=== PATIENT | female | born 2000 | race Caucasian/White ===

== ENCOUNTER 2019-02-15 14:31 | Emergency (ER) | payer OTHER, SELFPAY ==
[2019-02-15 14:40] VITALS: BP 123/89; PULSE 119; RESP 16; O2SAT 100; BMI 34.5
[2019-02-15 15:04] LABS: Influenza A and B by PCR Rapid Negative (Negative)
--- NOTE | 2019-02-15 16:31 | ED.URI ---
HPI - URI/Sore Throat <FARHAN Shah - Last Filed: 02/15/19 22:04> General Chief Complaint: Upper Respiratory Symptoms Stated Complaint: THINKS SHE HAS FLU Time Seen by Provider: 02/15/19 16:15 Source: patient Mode of arrival: ambulatory Limitations: no limitations History of Present Illness HPI Narrative: a 18-year-old female with history of type 1 diabetes and is a nonsmoker here for complaint of sore throat over the past 3 days with low-grade fever area. She also reports having nasal congestion. No cough. She reports having some swelling and redness to the back of her throat. She does report also having generalized body aches during the same timeframe. She states she is tolerating p.o. intake. No nausea or vomiting. No shortness of breath. No other concerns or complaints at this timeframe. MD Complaint: fever, sore throat and rhinorrhea Related Data Previous Rx's Medication Instructions Recorded amoxicillin 500 mg PO BID #20 tab 02/15/19 Allergies Allergy/AdvReac Type Severity Reaction Status Date / Time No Known Drug Allergies Allergy Verified 02/15/19 14:40 Review of Systems <FARHAN Shah - Last Filed: 02/15/19 22:04> Constitutional Reports chills, Reports fever(s), Denies lethargy and Denies weakness Eyes Denies change in vision, Denies eye discharge, Denies irritation and Denies loss of vision ENT Ears, Nose, Mouth, and Throat: Reports sore throat and Denies throat swelling Cardiovascular Denies chest pain, Denies irregular heart rhythm, Denies lightheadedness, Denies palpitations and Denies orthopnea Respiratory Denies wheezing Gastrointestinal Gastrointestinal: Denies abdominal pain, Denies change in bowel habits, Denies diarrhea, Denies nausea and Denies vomiting Genitourinary Denies hematuria, Denies flank pain, Denies urinary incontinence and Denies urinary urgency Integumentary/Breasts Denies pruritus, Denies erythema, Denies rash and Denies wounds Neurologic Denies confusion, Denies loss of vision and Denies weakness Psychiatric Denies anxiety, Denies confusion, Denies depression, Denies homicidal ideation and Denies suicidal ideation Endocrine Denies palpitations Allergic/Immunologic Denies urticaria, Denies throat swelling and Denies wheezing Exam <FARHAN Shah - Last Filed: 02/15/19 22:04> Initial Vital Signs Initial Vital Signs: Vital Signs Pulse Rate 119 H 02/15/19 14:40 Respiratory Rate 16 02/15/19 14:40 Blood Pressure 123/89 02/15/19 14:40 Pulse Oximetry 100 02/15/19 14:40 Const General: cooperative and well developed Nutritional Appearance: well nourished Orientation: alert, awake, oriented x3 and not confused HENMT Mouth: oral mucosae normal and moist mucous membranes Throat: posterior oropharynx abnormal edema, erythema and exudates Eyes Conjunctivae: conjunctivae normal Sclera: sclerae normal Pupils: PERRL EOM: EOM intact bilaterally Resp Effort & Inspection: normal respiratory effort, able to speak in complete sentences, no respiratory distress and no use of accessory muscles Auscultation: clear to auscultation bilaterally, no rales, no rhonchi and no wheezes Cardio Rate: regular rate Rhythm: regular rhythm Heart Sounds: no click, no gallops, no murmurs and no rubs Pulses: normal peripheral pulses Skin General: no rashes or lesions noted, No jaundice and No petechiae <Emanuel Hill DO - Last Filed: 02/16/19 07:06> Initial Vital Signs Initial Vital Signs: Vital Signs Pulse Rate 119 H 02/15/19 14:40 Respiratory Rate 16 02/15/19 14:40 Blood Pressure 123/89 02/15/19 14:40 Pulse Oximetry 100 02/15/19 14:40 Course <FARHAN Shah - Last Filed: 02/15/19 22:04> Orders Ordered: ED Orders 02/15/19 14:40 Influenza A and B by PCR Rapid Stat Vital Signs - 8 hr 02/15/19 14:40 02/15/19 17:38 Pulse Rate 119 H 84 Respiratory Rate 16 18 Blood Pressure 123/89 Pulse Oximetry 100 100 <Emanuel Hill DO - Last Filed: 02/16/19 07:06> Orders Ordered: ED Orders 02/15/19 14:40 Influenza A and B by PCR Rapid Stat Vital Signs - 8 hr 02/15/19 14:40 02/15/19 17:38 Pulse Rate 119 H 84 Respiratory Rate 16 18 Blood Pressure 123/89 Pulse Oximetry 100 100 MDM - URI/Sore Throat <FARHAN Shah Last Filed: 02/15/19 22:04> Lab Data Lab Results 02/15/19 Range/Units 14:40 Influenza A & B (PCR) Negative (Negative) Point of Care Testing Rapid Strep A Negative MDM Narrative Medical decision making narrative: Influenza swab was obtained was negative. Strep test was obtained and was positive. Heart rate was initially elevated when she 1st arrived in the emergency room. She was encouraged to have a snack and also drink fluids. Heart rate normalized. She is treated with amoxicillin. Ueep-[id number]-ozagbow Tylenol or Motrin as needed for any discomfort. Plenty of fluids and rest. Follow up with primary care provider. Return emergency room for any worsening symptoms. <Emanuel Hill DO - Last Filed: 02/16/19 07:06> Lab Data Lab Results 02/15/19 Range/Units 14:40 Influenza A & B (PCR) Negative (Negative) Point of Care Testing Rapid Strep A Negative Discharge Plan Departure Patient Disposition: Home Clinical Impression: Acute streptococcal pharyngitis Discharge Date/Time: 02/15/19 18:09 Interventions: ED Discharge Assessment Last Done: 02/15/19 18:09 Instructions: DI for Strep Throat Activity Restrictions/Additional Instructions: influenza swab was obtained was negative. Strep test was obtained and was positive. Signs and symptoms presents as strep throat. You are placed on antibiotic called amoxicillin use as directed. use [id number] Tylenol or Motrin as needed for any discomfort and fever. Plenty of fluids. Follow up with her primary care for the next few days for re-evaluation. For any worsening symptoms return emergency room. Prescriptions: New amoxicillin 500 mg tablet 500 mg PO BID Qty: 20 RF: 0 Stand Alone Forms: Work Release Note, Work/School Release <Emanuel Hill DO - Last Filed: 02/16/19 07:06> Cosign ED Attending Joseature Attestation: I was immediately available in the department for consultation. Documentation has been reviewed. I agree with assessment and plan.
--- NOTE | 2019-02-15 16:47 | PC.NURSE ---
pt diabetic, checked her own sugar at 53, gave pt some apple juice and water per her request and also grabbed her some yogurt. Her strep is positive and Dariel REAL is aware of this.
[2019-02-15 17:38] VITALS: PULSE 84; RESP 18; O2SAT 100
== END 2019-02-15 18:09 | disposition home or self-care (01) ==
PROVIDERS: Emergency Medicine; Emergency Provider Nurse Practitioner Family
DX: J02.0 Streptococcal pharyngitis (principal)
CPT/HCPCS: 87400; 87880; 99282; 99283

== ENCOUNTER 2019-06-11 19:56 | Emergency (ER) | payer OTHER, SELFPAY ==
[2019-06-11 20:03] VITALS: BP 135/98; PULSE 121; RESP 19; TEMP 36.9; O2SAT 100; BMI 34.5
--- NOTE | 2019-06-11 23:11 | ED.UPPEXIN ---
HPI - Extremity Injury (Upper) General Chief Complaint: Extremity Injury, Upper Stated Complaint: dog bite right hand Time Seen by Provider: 06/11/19 21:07 Source: patient and family Mode of arrival: ambulatory Limitations: no limitations History of Present Illness HPI narrative: 18-year-old nonsmoker, otherwise healthy presents with a chief complaint of a dog bite to her right thumb. She was bitten by her friend's dog whom she knows well and is fully immunized. She was grieving her at the door and reached out to pat her and the dog nipped her on the right thumb. She has full range of motion and denies numbness, tingling or weakness. Her tetanus is current MD complaint: injury to: right Onset (ago): minute(s) Other injuries: none Handedness: right Place: home Severity: mild Relieving factors: none Exacerbating factors: movement of extremity Associated symptoms: denies other symptoms Treatments prior to arrival: bandage Related Data Previous Rx's Medication Instructions Recorded amoxicillin 500 mg PO BID #20 tab 02/15/19 amoxicillin-pot clavulanate 1 tab PO BID #20 tab 06/11/19 [Augmentin] Allergies Allergy/AdvReac Type Severity Reaction Status Date / Time No Known Drug Allergies Allergy Verified 02/15/19 14:40 Review of Systems Constitutional Denies chills, Denies fever(s), Denies lethargy and Denies weakness Eyes Denies change in vision, Denies eye discharge, Denies irritation and Denies loss of vision ENT Ears, Nose, Mouth, and Throat: Denies change in voice, Denies neck pain and Denies sore throat Cardiovascular Denies chest pain, Denies irregular heart rhythm, Denies lightheadedness, Denies palpitations, Denies dyspnea, Denies dyspnea on exertion and Denies orthopnea Respiratory Denies cough, Denies dyspnea, Denies dyspnea on exertion and Denies wheezing Gastrointestinal Gastrointestinal: Denies abdominal pain, Denies change in bowel habits, Denies diarrhea, Denies nausea and Denies vomiting Genitourinary Denies hematuria, Denies flank pain, Denies urinary incontinence and Denies urinary urgency Musculoskeletal Denies neck pain Integumentary/Breasts Denies pruritus, Denies erythema, Denies rash and Reports wounds Neurologic Denies confusion, Denies loss of vision and Denies weakness Psychiatric Denies anxiety, Denies confusion, Denies depression, Denies homicidal ideation and Denies suicidal ideation Endocrine Denies palpitations Hematologic/Lymphatic Denies easy bruising Allergic/Immunologic Denies wheezing PFSH Social History Smoking Status: Never smoker Social History Smoking Status: Never smoker Exam Narrative Exam Narrative: GEN: AOx3 and in mild distress EYES: Pupils are equal, round, and reactive to light and accommodation. Extraoccular muscles are intact bilaterally. There is no subconjunctival hemorrhage or exudate. CHEST: Lungs are clear to auscultation bilaterally and free of wheezes, rales, or rhonchi. Heart rate is regular rhythm, there are no murmurs, clicks, rubs, or gallops. There is no chest wall tenderness. ABD: Abdomen is soft and nontender. There is no guarding or rebound. Bowel sounds are normal in all 4 quadrants. There is no mass or organomegaly. EXT: 1.5 cm gaping laceration to volar surface of thumb. No tendon involvement. Full painless ROM of all extremities with no loss of sensation or strength. SKIN: Warm, pink, and dry. No erythema or rash Initial Vital Signs Initial Vital Signs: Vital Signs Temperature 98.5 F 06/11/19 20:03 Pulse Rate 121 H 06/11/19 20:03 Respiratory Rate 19 06/11/19 20:03 Blood Pressure 135/98 H 06/11/19 20:03 Pulse Oximetry 100 06/11/19 20:03 Procedures Laceration Repair Laceration 1: Site: upper extremity Side (If applicable): right Size (cm): 1.5 Description: flap Depth: simple, single layer Local Anesthetic: lidocaine 1% and bupivacaine 0.5% Amount of anesthesia used (mL): 2 Pre-repair: wound explored Skin layer closed with: nylon Size (cm): 4-0 Number of sutures: 4 Technique: simple, interrupted Course Orders Ordered: Discontinued Medications Amoxicillin/Clavulanate Potassium (Augmentin 875-125 Mg) 1 tab PO NOW ONE Stop: 06/11/19 23:17 Last Admin: 06/11/19 23:24 Dose: 1 tab Vital Signs - 8 hr 06/11/19 23:47 Pulse Rate 100 H Blood Pressure 141/75 H Pulse Oximetry 98 Discharge Plan Departure Patient Disposition: Home Clinical Impression: Dog bite of finger Qualifiers: Encounter type: initial encounter Qualified Code(s): S61.259A - Open bite of unspecified finger without damage to nail, initial encounter Discharge Date/Time: 06/11/19 23:47 Interventions: ED Discharge Assessment Last Done: 06/11/19 23:47 Instructions: DI for Dog Bite Activity Restrictions/Additional Instructions: Please keep the wound clean and dry to the best of your ability. Please monitor for signs of infection such as redness to the skin or increasing pain. Have the sutures removed by your doctor in about 7 days. If you are unable to get into your doctor, we would be happy to remove the sutures in that same timeframe *You have been diagnosed with [ dog bite with laceration ] *What to do: *Take medications as directed *Return to ER if you should have any new, worsening or concerning symptoms y Prescriptions: New amoxicillin-pot clavulanate [Augmentin] 875-125 mg tablet 1 tab PO BID Qty: 20 RF: 0 No Action amoxicillin 500 mg tablet 500 mg PO BID Qty: 20 RF: 0 Referrals: Miscellaneous,Doctor, MD [Primary Care Provider] -
[2019-06-11] MEDS: AMOXICILLIN/CLAV 875/125 MG 1 TAB PO (23:24)
[2019-06-11 23:47] VITALS: BP 141/75; PULSE 100; O2SAT 98
== END 2019-06-11 23:47 | disposition home or self-care (01) ==
PROVIDERS: Emergency Provider Emergency Medicine
DX: S61.051A Open bite of right thumb without damage to nail, initial encounter (principal); W54.0XXA Bitten by dog, initial encounter
CPT/HCPCS: 12001; 99283

== ENCOUNTER → 2019-09-07 15:21 | Outpatient (CLI) | payer OTHER, SELFPAY | DX: Z23 Encounter for immunization (principal) | CPT/HCPCS: 90471; 90686 ==

== ENCOUNTER → 2020-06-14 16:47 | Outpatient (CLI) | payer OTHER, SELFPAY ==
[2020-06-14 18:32] LABS: Urine N gonorrhoeae NOT DETECTED
[2020-06-14 18:33] LABS: Urine Chlamydia NOT DETECTED
== END ==
PROVIDERS: Visit Provider Physician Assistant
DX: R30.0 Dysuria (principal)
CPT/HCPCS: 87077; 87086; 87186; 87491; 87591

== ENCOUNTER → 2020-06-15 14:39 | Outpatient (CLI) | payer OTHER, SELFPAY ==
[2020-06-17 06:52] LABS: COVID19 Sendout Not Detected (Not Detect)
== END ==
PROVIDERS: Visit Provider Physician Assistant
DX: R50.9 Fever, unspecified (principal); R52 Pain, unspecified; R53.83 Other fatigue
CPT/HCPCS: 87635

== ENCOUNTER → 2020-07-01 15:49 | Outpatient (CLI) | payer OTHER, SELFPAY | PROVIDERS: Visit Provider Physician Assistant | DX: R30.0 Dysuria (principal) | CPT/HCPCS: 87086 ==

== ENCOUNTER → 2020-10-24 14:57 | Outpatient (CLI) | payer OTHER, SELFPAY | PROVIDERS: Referring Provider Internal Medicine; Visit Provider Internal Medicine | DX: Z23 Encounter for immunization (principal) | CPT/HCPCS: 90471; 90686 ==

== ENCOUNTER 2021-06-19 12:41 | Emergency (ER) | payer OTHER, SELFPAY ==
[2021-06-19 13:11] VITALS: BP 130/81; PULSE 77; RESP 22; TEMP 36.6; O2SAT 99
--- NOTE | 2021-06-19 13:44 | ED.BACK ---
HPI - Back Pain/Injury General Chief Complaint: Back Pain/Injury Stated Complaint: upper back pain Time Seen by Provider: 06/19/21 13:42 Source: patient History of Present Illness HPI Narrative: Patient is a 20-year-old female with history of type 1 diabetes who presents with right-sided thoracic back pain. 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 Now whenever she flexes her neck is tense pain directly to this 1 particular spot. She has no numbness tingling or weakness in her legs or arms. Related Data Home Medications Medication Instructions Recorded Confirmed insulin aspart prot-aspart 100 1 sliding scale dose SUBCUT 07/01/20 07/01/20 unit/mL (70-30) subcutaneous USEASDIRECTD cartridge Previous Rx's Medication Instructions Recorded cyclobenzaprine 5 mg tablet 5 mg PO TID PRN #10 tab 06/19/21 Allergies Allergy/AdvReac Type Severity Reaction Status Date / Time No Known Drug Allergies Allergy Verified 07/01/20 15:34 Review of Systems Review of Systems Narrative: GENERAL: Denies chills,fever HEENT: Denies throat pain RESPIRATORY: Denies dyspnea, cough, wheezing CARDIOVASCULAR: Denies chest pain, palpitations GASTROINTESTINAL: Denies nausea, vomiting MUSCULOSKELETAL: See HPI SKIN: No rash, no laceration, no pruritus NEUROLOGIC: Denies weakness, dizziness, headache, numbness 8 point review of systems is negative except for those stated above and HPI Patient History Medical History (Updated 06/19/21 @ 14:03 by Alise Vernon DO) Routine screening for STI (sexually transmitted infection) UTI (urinary tract infection) Social History Smoking Status: Never smoker Smoking Status: Never smoker alcohol intake frequency: other Substance Use Type: does not use Exam Initial Vital Signs Initial Vital Signs: Vital Signs Temperature 97.9 F 06/19/21 13:11 Pulse Rate 77 06/19/21 13:11 Respiratory Rate 22 06/19/21 13:11 Blood Pressure 130/81 06/19/21 13:11 Pulse Oximetry 99 06/19/21 13:11 GENERAL: Well-appearing, well-nourished and in no acute distress. CARDIOVASCULAR: peripheral pulses in tact, cap refill <2 sec RESPIRATORY: No respiratory distress, speaks in full sentences without difficulty BACK: Muscle spasm felt and thoracic lumbar junction paraspinal muscles to the right. No midline tenderness no step-off EXTREMITIES: Normal range of motion, no clubbing or edema. Neurovascularly intact NEUROLOGICAL: Cranial nerves II through XII grossly intact. Normal gait and speech. SKIN: Warm, dry, no petechiae, no rashes or lesions. Course Vital Signs Vital signs: Vital Signs - 8 hr 06/19/21 13:11 Temperature 97.9 F Pulse Rate 77 Respiratory Rate 22 Blood Pressure 130/81 Pulse Oximetry 99 MDM - Back Pain/Injury MDM Narrative Medical decision making narrative: Patient is nontender over her spine. It is lateral to the right and muscle spasm. She is requesting muscle relaxer which I think is appropriate. Discharge Plan Departure Patient Disposition: Home Clinical Impression: Muscle spasm Instructions: DI for Back Spasm Activity Restrictions/Additional Instructions: *You have been diagnosed with back muscle spasm *What to do: At this time he likely of a muscle spasm. Recommend heating pad, light stretching, *Continue to take medications as directed Flexeril 5 mg every 8 hours if needed for muscle pain and spasm Ibuprofen 800 mg every 8 hours as needed for lyyt-me-jybjdwzs pain Tylenol 1000 mg every 6 hours as needed for pepd-tk-fhawhoix pain *Follow up with your primary care provider in 2-3 days *Return to ER if you should have increasing pain, weakness numbness or tingling or any new, worsening or concerning symptoms Prescriptions: New cyclobenzaprine 5 mg tablet 5 mg PO TID PRN (Reason: muscle spasm) Qty: 10 RF: 0 No Action insulin asp prt-insulin aspart 100 unit/mL (70-30) cartridge 1 sliding scale dose SUBCUT USEASDIRECTD RF: 0 Referrals: Miscellaneous,Doctor, [Primary Care Provider] -
== END 2021-06-19 14:10 | disposition home or self-care (01) ==
PROVIDERS: Emergency Provider Emergency Medicine
DX: M62.830 Muscle spasm of back (principal); Y99.0 Civilian activity done for income or pay
CPT/HCPCS: 99281

== ENCOUNTER → 2021-09-25 13:26 | Outpatient (CLI) | payer OTHER, SELFPAY | PROVIDERS: Referring Provider Internal Medicine; Visit Provider Internal Medicine | DX: Z23 Encounter for immunization (principal) | CPT/HCPCS: 90471; 90686 ==

== ENCOUNTER → 2022-12-03 15:06 | Outpatient (CLI) | payer OTHER, SELFPAY | PROVIDERS: Referring Provider Internal Medicine; Visit Provider Internal Medicine | DX: Z23 Encounter for immunization (principal) | CPT/HCPCS: 90471; 90686 ==

== ENCOUNTER 2023-01-01 12:52 | Emergency (ER) | payer OTHER, SELFPAY ==
[2023-01-01 13:09] VITALS: BP 147/78; PULSE 86; RESP 16; TEMP 36.7; O2SAT 100; BMI 40.7
--- NOTE | 2023-01-01 13:26 | DI.RAD.S_ITS ---
PROCEDURE: XR CHEST 1V INDICATIONS: chest pain TECHNIQUE: One view of the chest was acquired. COMPARISON: None. FINDINGS: Surgical changes and devices: None. Lungs and pleura: Lungs are clear. No pleural effusions or pneumothorax. Mediastinum: Mediastinal contours appear normal. Heart size is normal. Bones and chest wall: No suspicious bony lesions. Overlying soft tissues appear unremarkable. IMPRESSION: No acute cardiopulmonary abnormality. Approved by: Armani Allan M.D. on 01/01/2023 at 15:07
[2023-01-01 14:01] LABS: Add Manual Diff / Slide Review NO; Basophils Absolute Auto 100 /uL (0-100); Basophils Percent Auto 0.8 % (0-2); Eosinophils Absolute Auto 100 /uL (0-450); Eosinophils Percent Auto 1.7 % (2-4); Hematocrit 40.5 % (36-46); Hemoglobin 13.2 g/dL (12.0-16.0); Lymphocytes Absolute Auto 1800 /uL (1100-4500); Lymphocytes Percent Auto 21.6 % (25-40); Mean Corpuscular HGB Conc 32.7 % (30-36); Mean Corpuscular Hemoglobin 26.3 PG (26-34); Mean Corpuscular Volume 80.6 fL (80-100); Monocytes Absolute Auto 600 /uL (0-900); Monocytes Percent Auto 7.8 % (3-14); Neutrophils Absolute Auto 5600 /uL (1500-7000); Neutrophils Percent Auto 68.1 % (50-75); Platelet Count 298 X10^3/uL (150-400); Red Blood Cell Count 5.02 X10^6/uL (4.0-5.2); Red Cell Distribution Width 13.6 % (11.6-14.8); White Blood Cell Count 8.2 X10^3/uL (4.5-11.0)
[2023-01-01 14:07] LABS: PTT Partial Thromboplastin Tim 32 SECONDS (26-36)
[2023-01-01 14:09] LABS: Alanine Aminotransferase 23 IU/L (<35); Albumin 4.2 g/dL (3.5-5.0); Albumin Globulin Ratio 1.2 (1.0-2.8); Alkaline Phosphatase 83 U/L (38-126); Aspartate Aminotransferase 22 IU/L (14-36); BUN Creatinine Ratio 24.1 (6-22); Bilirubin Total 0.5 mg/dL (0.2-1.3); Blood Urea Nitrogen 13 mg/dL (7-17); Calcium 9.1 mg/dL (8.4-10.2); Carbon Dioxide 26 mmol/L (22-32); Chloride 104 mmol/L (98-107); Creatine Kinase 86 U/L (30-135); Estimated Glomerular Filt Rate > 60 mL/min (>60); Globulin 3.4 g/dL (1.7-4.1); Glucose 152 mg/dL (70-100); HEMOLYSIS < 15 (0-50); Lipase 34 U/L (23-300); Magnesium 1.7 mg/dL (1.6-2.3); Sodium 140 mmol/L (137-145); Total Protein 7.6 g/dL (6.3-8.2)
[2023-01-01 14:19] LABS: Troponin I < 0.012 ng/mL (0.01-0.034)
[2023-01-01 14:41] LABS: D Dimer 247 ng/ml (<500)
[2023-01-01 15:28] VITALS: PULSE 86; O2SAT 100
[2023-01-01 15:29] VITALS: BP 109/71; PULSE 87; O2SAT 100
[2023-01-01 15:50] LABS: Bacteria Urine Moderate (10-30); Culture Indicated Urine Specimen Cultured; RBC Urine 1-5/HPF (0-5/HPF); Squamous Epithelial Cell Urine 5-10 /HPF (0-5/HPF); WBC Urine 5-10/HPF (0-5/HPF)
--- NOTE | 2023-01-01 16:49 | ED_ITS ---
HPI - Chest Pain General Chief Complaint: Chest Pain Stated Complaint: chest discomfort LT side X2 weeks Time Seen by Provider: 01/01/23 16:28 Source: patient Mode of arrival: Ambulatory History of Present Illness HPI narrative: 22-year-old female, never smoker with history of diabetes, presents to the emergency department with a 2 week history of left-sided chest pain. Patient states that the pain lasts up to 30 seconds but then resolves on its own. Patient denies any trauma to that area or extraneous activity that would cause shoulder pain. Patient denies any nausea, vomiting, diarrhea or constipation. No history of abdominal surgeries or cardiac issues. Patient is currently being worked up for GERD by her family doctor and has been on omeprazole for the last 2 weeks. Related Data Home Medications Medication Instructions Recorded Confirmed insulin aspart prot-aspart 100 1 sliding scale dose SUBCUT 07/01/20 07/01/20 unit/mL (70-30) subcutaneous USEASDIRECTD cartridge Previous Rx's Medication Instructions Recorded cyclobenzaprine 5 mg tablet 5 mg PO TID PRN muscle spasm #10 06/19/21 tabs Allergies Allergy/AdvReac Type Severity Reaction Status Date / Time No Known Drug Allergies Allergy Verified 01/01/23 13:09 Review of Systems Review of Systems Narrative: Narrative: See HPI. GENERAL: Denies chills, fatigue, fever, sweats. HEENT: Denies sinus pain, ear pain, sore throat, difficulty swallowing, dizziness. RESPIRATORY: Denies dyspnea, cough, wheezing, sputum. CARDIOVASCULAR: Denies chest pain, palpitations, edema. GASTROINTESTINAL: Denies nausea, vomiting, abdominal pain, diarrhea, constipation. : Denies dysuria, frequency, incontinence, hematuria, urinary retention, flank pain. MSK: Denies weakness, joint pain, or bony pain. SKIN: Denies rash, skin lesions, or pruritis. NEUROLOGIC: Denies weakness, dizziness, headache, numbness, confusion. PSYCHIATRIC: No concerning psychosocial issues. Patient History Medical History Routine screening for STI (sexually transmitted infection) UTI (urinary tract infection) Social History Smoking Status: Never smoker Smoking Status: Never smoker alcohol intake frequency: other Substance Use Type: does not use Exam Narrative Exam Narrative: Exam Narrative: GENERAL: This is a well-nourished, well-developed patient, in no acute distress. HEAD: Atraumatic. Normocephalic. EYES: Pupils equal round and reactive. Extraocular motions intact. No scleral icterus, injection or drainage. ENT: Nose without bleeding, purulent drainage. Throat without erythema, tonsillar hypertrophy or exudate. Uvula midline. Airway patent. TMs and canals clear. No sinus tenderness. NECK: Trachea midline. No JVD or lymphadenopathy. Nontender. CARDIOVASCULAR: Regular rate and rhythm without murmurs, peripheral pulses intact, cap refill <2 sec. RESPIRATORY: Breath sounds equal and clear bilaterally. No wheezes, rales, or rhonchi. No cough. No increased respiratory effort. No accessory muscle use. GASTROINTESTINAL: Abdomen soft, non-tender, nondistended without guarding or rebound. No suprapubic pain. MSK: Moves all extremities. Normal range of motion, no clubbing or edema. Neurovascularly intact. Pain not reproducible. NEURO: A&O x 3. SKIN: Warm, dry, no rashes or lesions noted. Initial Vital Signs Initial Vital Signs: Vital Signs Temperature 98.0 F 01/01/23 13:09 Pulse Rate 86 01/01/23 13:09 Respiratory Rate 16 01/01/23 13:09 Blood Pressure 147/78 H 01/01/23 13:09 Pulse Oximetry 100 01/01/23 13:09 Oxygen Delivery Method 01/01/23 13:09 Reviewed Course Orders Ordered: ED Orders 01/01/23 13:24 Urine Culture Stat Urine Microscopic Stat 01/01/23 13:26 XR chest 1V Stat EKG-12 Lead Stat 01/01/23 13:51 Complete Blood Count AUTO DIFF Stat Comprehensive Metabolic Panel Stat D Dimer Stat Lipase Stat Magnesium Stat Partial Thromboplastin Time Stat Prothrombin Time INR Stat Troponin & CK Cardiac Panel Stat Vital Signs Vital signs: Vital Signs - 8 hr 01/01/23 13:09 01/01/23 15:28 01/01/23 15:29 Temperature 98.0 F Pulse Rate 86 86 Respiratory Rate 16 Blood Pressure 147/78 H 109/71 Pulse Oximetry 100 100 Oxygen Delivery Method Room Air 01/01/23 15:29 01/01/23 16:53 01/01/23 16:54 Temperature Pulse Rate 87 Respiratory Rate Blood Pressure Pulse Oximetry 100 98 99 Oxygen Delivery Method 01/01/23 16:54 Temperature Pulse Rate Respiratory Rate Blood Pressure 112/76 Pulse Oximetry Oxygen Delivery Method MDM - Chest Pain Differential Diagnosis Differential diagnosis: Likely atypical chest pain Condition is:: Improved Lab Data 01/01/23 13:51 01/01/23 13:51 Labs: Lab Results 01/01/23 01/01/23 01/01/23 Range/Units 13:24 13:51 13:51 WBC 8.2 (4.5-11.0) X10^3/uL RBC 5.02 (4.0-5.2) X10^6/uL Hgb 13.2 (12.0-16.0) g/dL Hct 40.5 (36-46) % MCV 80.6 (80-100) fL MCH 26.3 (26-34) PG MCHC 32.7 (30-36) % RDW 13.6 (11.6-14.8) % Plt Count 298 (150-400) X10^3/uL Neut % (Auto) 68.1 (50-75) % Lymph % (Auto) 21.6 L (25-40) % [place] % (Auto) 7.8 (3-14) % Eos % (Auto) 1.7 L (2-4) % Baso % (Auto) 0.8 (0-2) % Neut # (Auto) 5600 (7451-2921) /uL Lymph # (Auto) 1800 (1425-4172) /uL [place] # (Auto) 600 (0-900) /uL Eos # (Auto) 100 (0-450) /uL Baso # (Auto) 100 (0-100) /uL PT 11.0 (10.1-12.7) SECONDS INR 1.0 (0.9-1.3) APTT 32 (26-36) SECONDS D-Dimer (<500) ng/ml Sodium (137-145) mmol/L Potassium (3.4-5.1) mmol/L Chloride (98-107) mmol/L Carbon Dioxide (22-32) mmol/L BUN (7-17) mg/dL Creatinine (0.52-1.04) mg/dL Estimated GFR (>60) mL/min BUN/Creatinine Ratio (6-22) Glucose (70-100) mg/dL Calcium (8.4-10.2) mg/dL Magnesium (1.6-2.3) mg/dL Total Bilirubin (0.2-1.3) mg/dL AST (14-36) IU/L ALT (<35) IU/L Alkaline Phosphatase (38-126) U/L Total Creatine Kinase (30-135) U/L CK-MB (CK-2) CK-MB (CK-2) Rel Index Troponin I (0.01-0.034) ng/mL Total Protein (6.3-8.2) g/dL Albumin (3.5-5.0) g/dL Globulin (1.7-4.1) g/dL Albumin/Globulin Ratio (1.0-2.8) Lipase (23-300) U/L Urine RBC 1-5/hpf (0-5/HPF) Urine WBC 5-10/hpf H (0-5/HPF) Ur Squamous Epith Cells 5-10 /hpf H (0-5/HPF) Urine Bacteria Moderate (10-30) H (None) Ur Culture Indicated? Specimen cultured 01/01/23 01/01/23 Range/Units 13:51 13:51 WBC (4.5-11.0) X10^3/uL RBC (4.0-5.2) X10^6/uL Hgb (12.0-16.0) g/dL Hct (36-46) % MCV (80-100) fL MCH (26-34) PG MCHC (30-36) % RDW (11.6-14.8) % Plt Count (150-400) X10^3/uL Neut % (Auto) (50-75) % Lymph % (Auto) (25-40) % [place] % (Auto) (3-14) % Eos % (Auto) (2-4) % Baso % (Auto) (0-2) % Neut # (Auto) (8748-5743) /uL Lymph # (Auto) (3308-4749) /uL [place] # (Auto) (0-900) /uL Eos # (Auto) (0-450) /uL Baso # (Auto) (0-100) /uL PT (10.1-12.7) SECONDS INR (0.9-1.3) APTT (26-36) SECONDS D-Dimer 247 (<500) ng/ml Sodium 140 (137-145) mmol/L Potassium 4.0 (3.4-5.1) mmol/L Chloride 104 (98-107) mmol/L Carbon Dioxide 26 (22-32) mmol/L BUN 13 (7-17) mg/dL Creatinine 0.54 (0.52-1.04) mg/dL Estimated GFR > 60 (>60) mL/min BUN/Creatinine Ratio 24.1 H (6-22) Glucose 152 H (70-100) mg/dL Calcium 9.1 (8.4-10.2) mg/dL Magnesium 1.7 (1.6-2.3) mg/dL Total Bilirubin 0.5 (0.2-1.3) mg/dL AST 22 (14-36) IU/L ALT 23 (<35) IU/L Alkaline Phosphatase 83 (38-126) U/L Total Creatine Kinase 86 (30-135) U/L CK-MB (CK-2) TNP CK-MB (CK-2) Rel Index TNP Troponin I < 0.012 (0.01-0.034) ng/mL Total Protein 7.6 (6.3-8.2) g/dL Albumin 4.2 (3.5-5.0) g/dL Globulin 3.4 (1.7-4.1) g/dL Albumin/Globulin Ratio 1.2 (1.0-2.8) Lipase 34 (23-300) U/L Urine RBC (0-5/HPF) Urine WBC (0-5/HPF) Ur Squamous Epith Cells (0-5/HPF) Urine Bacteria (None) Ur Culture Indicated? Point of Care Testing Test Results Negative Urine Dip Bedside Urine Glucose 500 mg/dl Bedside Urine Bilirubin - Negative Bedside Urine Ketone +/- 5 Urine Specific Gap 1.025 Bedside Urine Occult Blood - Negative Bedside Urine pH 6.0 Bedside Urine Protein - Negative Bedside Urine Urobilinogen - Negative Bedside Urine Nitrite - Negative Bedside Urine Leukocytes - Negative Esterase Imaging Data Chest x-ray: Radiologist's Impression: [address] [address] XRay Report Signed Patient: Magda Hardin MR#: [id number] : 2000 Acct:[id number] Age/Sex: 22 / F Date of Service: 01/01/23 Loc: ED Accession Number: [id number] ?? Procedure: XR chest 1V Ordering Provider: Rajesh Viera MD PROCEDURE:? XR CHEST 1V ? INDICATIONS:? chest pain ? TECHNIQUE:? One view of the chest was acquired.? ? COMPARISON:? None. ? FINDINGS:? ? Surgical changes and devices:? None.? ? Lungs and pleura:? Lungs are clear.? No pleural effusions or pneumothorax.? ? Mediastinum:? Mediastinal contours appear normal.? Heart size is normal.? ? Bones and chest wall:? No suspicious bony lesions.? Overlying soft tissues appear unremarkable.? ? IMPRESSION:? No acute cardiopulmonary abnormality. ? ? ? Approved by: Armani Allan M.D. on 01/01/2023 at 15:07? ECG Data Attestation: I personally reviewed and interpreted this ECG as follows: Interpretation: NSR with vent rate of 97 bpm. WV interval of 140ms. MDM Narrative Medical decision making narrative: 22-year-old female with history of diabetes presents to the emergency department intermittent left-sided chest pain. Assessment was unremarkable. Chest x-ray, EKG and labs were normal. Patient is currently being worked up for GERD by her family doctor but suspect much of patient's symptoms may be stress induced. D iscussed stress reduction activities, proper rest and hydration and close follow up with her family doctor. Discussed plan of care and return precautions with patient and boyfriend, who verbalized understanding and were agreeable with course of action. Discharge Plan Departure Patient Disposition: Home Clinical Impression: Atypical chest pain Instructions: DI for Atypical Chest Pain Activity Restrictions/Additional Instructions: *You have been diagnosed with atypical chest pain. My assessment was encouraging and your x-ray, EKG and labs were all normal. I suspect some of your symptoms may be from your stress level. Please engage in stress reduction activities and follow-up with your family doctor as previously planned. For any worsening symptoms that include intolerable pain, shortness of breath, chest pain, etc. please return to the emergency department. *What to do: *Please continue to take your regular medications as directed. [ ] New medication prescriptions sent to your pharmacy: [ ] [ ] New medication written as a paper prescription [x ] No new medications given *Please follow up with your primary care provider in 2-3 days, call for an appointment. Let them know you were seen in the Emergency Department and that we ask that you be seen in follow up. We will electronically transmit a record of today's note if your PCP is in our system *If you do not have a primary care provider please contact the [facility] Resource line at [phone]. They will ask some questions about your medical history and help get you set up with a doctor in the community. ? Return to ER if you should have any new, worsening or concerning symptoms, such as worsening pain, severe headache, confusion, chest pain, difficulty breathing, fever greater than 101 F, shaking chills, persistent vomiting to the point that you cannot drink fluids, or other new or worsening symptoms. Prescriptions: No Action insulin asp prt-insulin aspart 100 unit/mL (70-30) cartridge 1 sliding scale dose SUBCUT USEASDIRECTD cyclobenzaprine 5 mg tablet 5 mg PO TID PRN (Reason: muscle spasm) Qty: 10 0RF Referrals: Jillian Smith ARNP [Primary Care Provider] - Stand Alone Forms: Patient Portal/API
[2023-01-01 16:53] VITALS: O2SAT 98
[2023-01-01 16:54] VITALS: BP 112/76; O2SAT 99
== END 2023-01-01 16:56 | disposition home or self-care (01) ==
PROVIDERS: Emergency Medicine; Emergency Provider Registered Nurse; PCP Internal Medicine
DX: R07.89 Other chest pain (principal)
CPT/HCPCS: 36415; 71045; 80053; 81003; 81015; 81025; 82550; 83690; 83735; 84484; 85025; 85379; 85610; 85730; 87086; 93005; 99284

== ENCOUNTER → 2023-09-09 | Outpatient (CLI) | payer OTHER, SELFPAY | PROVIDERS: PCP Internal Medicine; Referring Provider Family Medicine; Visit Provider Family Medicine | DX: Z23 Encounter for immunization (principal) | CPT/HCPCS: 90471; 90686 ==